=== PATIENT | male | born 1985 | race African-American/Black ===

== ENCOUNTER 2021-10-20 19:26 | Emergency (ER) | payer OTHER ==
[~2021-10-20] VITALS: Ht 167.6 cm; Wt 95.3 kg
[2021-10-20] MEDS ORDERED: CYCLOBENZAPRINE5 MG PO (22:19)
[2021-10-20] MEDS ORDERED: IBU600 MG PER TUBE (22:19)
[2021-10-20 22:48] VITALS: BP 161/13
== END 2021-10-20 22:54 | disposition home or self-care (01) ==
LOC: ER 19:26
DX: S16.1XXA Strain of muscle, fascia and tendon at neck level, initial encounter (principal); S20.212A Contusion of left front wall of thorax, initial encounter; S80.12XA Contusion of left lower leg, initial encounter; S80.11XA Contusion of right lower leg, initial encounter; V49.59XA Passenger injured in collision with other motor vehicles in traffic accident, initial encounter; Y93.89 Activity, other specified; Y92.413 State road as the place of occurrence of the external cause; Y99.9 Unspecified external cause status